=== PATIENT | female | born 1945 | race Caucasian/White ===

== ENCOUNTER 2025-03-31 15:23 | Inpatient (IN) | payer MEDICARE ==
[~2025-03-31] VITALS: Ht 165.1 cm; Wt 51.5 kg
[2025-03-31] MEDS ORDERED: ONDANSETRON 4 MG/2 ML VIAL ONE (15:30)
[2025-03-31] MEDS ORDERED: FUROSEMIDE 40 MG/4 ML VIAL ONE (15:30)
[2025-03-31] MEDS ORDERED: NITROGLYCERIN OINT 1 GM PACKET TP ONE (15:31)
[2025-03-31] MEDS: FUROSEMIDE 40 MG/4 ML VIAL IV ONE (15:41)
[2025-03-31] MEDS: ONDANSETRON 4 MG/2 ML VIAL IV ONE (15:41)
[2025-03-31] MEDS: NITROGLYCERIN OINT 1 GM PACKET TP ONE (15:41)
[2025-03-31 15:43] LABS: BASOPHILS # (AUTO) 0.1 K/UL (0.0-0.2); BASOPHILS % (AUTO) 0.6 % (0.0-2.0); EOSINOPHILS # (AUTO) 0.2 K/uL (0.0-0.7); HEMATOCRIT 35.3 % (31.2-41.9); HEMOGLOBIN 11.3 g/dL (10.9-14.3); LYMPHOCYTES # (AUTO) 1.1 K/uL (0.8-4.8); LYMPHOCYTES % (AUTO) 11.5 % (20.5-51.5); MEAN CORPUSCULAR HEMOGLOBIN 27.9 uug (24.7-32.8); MEAN CORPUSCULAR HGB CONC 32 g/dL (32.3-35.6); MEAN CORPUSCULAR VOLUME 87.1 fL (75.5-95.3); MONOCYTES # (AUTO) 1.3 K/uL (0.1-1.30); MONOCYTES % (AUTO) 13.1 % (0.0-11.0); NEUTROPHILS % (AUTO) 72.8 % (38.5-71.5); PLATELET COUNT (AUTO) 242 K/uL (179-408); RED BLOOD CELL COUNT(AUTO) 4.06 MIL/uL (3.63-4.92); RED CELL DISTRIBUTION WIDTH 14.7 % (12.3-17.7); WHITE BLOOD COUNT (AUTO) 9.6 K/uL (3.8-11.8)
[2025-03-31 15:50] LABS: CALCIUM 8.5 mg/dL (8.5-10.1); CARBON DIOXIDE 25 mmol/L (21-32); CHLORIDE 93 mmol/L (98-107); CREATININE 0.7 mg/dL (0.6-1.3); GLUCOSE 145 mg/dL (74-106); POTASSIUM 4.7 mmol/L (3.5-5.1); SODIUM SERUM 125 mmol/L (136-145); UREA NITROGEN, BLOOD 21 mg/dL (7-18)
[2025-03-31 15:59] LABS: DIFFERENTIAL COMMENT 1
[2025-03-31 16:03] LABS: ALANINE AMINOTRANSFERASE 18 U/L (14-59); ALBUMIN 3.2 g/dL (3.4-5.0); ALKALINE PHOSPHATASE 73 U/L (50-136); ASPARTATE AMINOTRANSFERASE 19 U/L (15-37); BILIRUBIN,DIRECT 0.1 mg/dL (0.0-0.2); BILIRUBIN,TOTAL 0.4 mg/dL (0.2-1.0); NT-PRO BNP 1281 pg/mL (0-125); TOTAL PROTEIN, SERUM 6.9 g/dL (6.4-8.2)
[2025-03-31 16:20] VITALS: O2SAT 96
[2025-03-31 16:38] LABS: ABG BASE EXCESS -1.4 mmol/L (-2.0-3.0); ABG HCO3 23.8 mmol/L (21.0-28.0); ABG PCO2 41.7 mmHg (32.0-45.0); ABG PH 7.374 (7.350-7.450); ABG PO2 88.2 mmHg (83.0-108.0); ABG SITE RIGHT RADIAL; ABG TOTAL HEMOGLOBIN 12.1 G/dL (12.0-16.0); AaDO2 96.5 mmHg; COHb 0.3 % (0.5-1.5); MetHb 0.1 % (0.0-1.5); O2Hb 95.9 % (94.0-98.0)
[2025-03-31] MEDS ORDERED: LABETALOL PO (17:27)
[2025-03-31] MEDS ORDERED: TRIA60LO13 TP (17:27)
[2025-03-31] MEDS ORDERED: METO-295 PO (17:27)
[2025-03-31] MEDS ORDERED: LOSA25TA27 PO (17:27)
[2025-03-31] MEDS ORDERED: HYDR28.35 TP (17:27)
[2025-03-31] MEDS ORDERED: CELE100C PO (17:27)
[2025-03-31] MEDS ORDERED: AMLO1ORA PO (17:27)
[2025-03-31] MEDS ORDERED: UREA198C TP (17:27)
[2025-03-31] MEDS ORDERED: FURO20TA4 PO (17:27)
[2025-03-31] MEDS ORDERED: ENOXAPARIN SODIUM 60 MG/0.6 ML DISP.SYRIN SQ ONE (20:13)
[2025-03-31] MEDS: ENOXAPARIN SODIUM 60 MG/0.6 ML DISP.SYRIN SQ ONE (20:19)
[2025-03-31 21:00] VITALS: O2SAT 96
[2025-03-31] MEDS ORDERED: MAGNESIUM HYDROXIDE 30 ML LIQUID UDC PO PRN (21:15)
[2025-03-31] MEDS ORDERED: ONDANSETRON 4 MG/2 ML VIAL IV PRN (21:15)
[2025-03-31] MEDS ORDERED: REMEDY ESSENTIAL ZINC PASTE 113 GM TP PRN (21:15)
[2025-03-31] MEDS: ACETAMINOPHEN 325 MG TABLET PO PRN (22:10)
[2025-03-31] MEDS ORDERED: BUMETANIDE 2.5 MG/10 ML VIAL ONE (22:13)
[2025-03-31] MEDS: BUMETANIDE INJ 4 MG in IV DEXTROSE 5% 24 ML IV ONE (22:27)
[2025-03-31] MEDS: LABETALOL HCL 100 MG TABLET PO ONE (22:54)
[2025-03-31 23:33] VITALS: BP 154/89; TEMP 98.8; O2SAT 91
[2025-04-01] VITALS (7 sets, daily range): BP systolic 97–138; BP diastolic 55–80; TEMP 97.6–99.3; O2SAT 88–100
[2025-04-01 04:26] LABS: BASOPHILS # (AUTO) 0.1 K/UL (0.0-0.2); BASOPHILS % (AUTO) 0.5 % (0.0-2.0); EOSINOPHILS % (AUTO) 0.3 % (0.0-7.0); HEMATOCRIT 32.4 % (31.2-41.9); HEMOGLOBIN 10.5 g/dL (10.9-14.3); LYMPHOCYTES # (AUTO) 0.7 K/uL (0.8-4.8); MEAN CORPUSCULAR HEMOGLOBIN 28.2 uug (24.7-32.8); MEAN CORPUSCULAR HGB CONC 32 g/dL (32.3-35.6); MEAN CORPUSCULAR VOLUME 87.4 fL (75.5-95.3); MONOCYTES # (AUTO) 1.5 K/uL (0.1-1.30); MONOCYTES % (AUTO) 8.5 % (0.0-11.0); NEUTROPHILS # (AUTO) 15.1 K/uL (1.8-8.9); NEUTROPHILS % (AUTO) 86.7 % (38.5-71.5); PLATELET COUNT (AUTO) 128 K/uL (179-408); RED BLOOD CELL COUNT(AUTO) 3.71 MIL/uL (3.63-4.92); RED CELL DISTRIBUTION WIDTH 14.4 % (12.3-17.7); WHITE BLOOD COUNT (AUTO) 17.5 K/uL (3.8-11.8)
[2025-04-01 04:34] LABS: DIFFERENTIAL COMMENT 1
[2025-04-01 04:39] LABS: ALANINE AMINOTRANSFERASE 16 U/L (14-59); ALKALINE PHOSPHATASE 66 U/L (50-136); ASPARTATE AMINOTRANSFERASE 15 U/L (15-37); BILIRUBIN,TOTAL 0.8 mg/dL (0.2-1.0); CALCIUM 8.6 mg/dL (8.5-10.1); CARBON DIOXIDE 27 mmol/L (21-32); CHLORIDE 93 mmol/L (98-107); CHOLESTEROL 247 mg/dL (<200); CREATININE 0.8 mg/dL (0.6-1.3); GLUCOSE 104 mg/dL (74-106); HDL CHOLESTEROL 58 mg/dL (40-60); MAGNESIUM 1.8 mg/dL (1.8-2.4); PHOSPHOROUS 4.7 mg/dL (2.5-4.9); POTASSIUM 3.8 mmol/L (3.5-5.1); SODIUM SERUM 129 mmol/L (136-145); TOTAL PROTEIN, SERUM 6.6 g/dL (6.4-8.2); TRIGLYCERIDES 67 MG/DL (30-150); UREA NITROGEN, BLOOD 22 mg/dL (7-18)
[2025-04-01 05:23] LABS: THYROID STIMULATING HORMONE 4.082 mIU/mL (0.358-3.740)
[2025-04-01] MEDS: PANTOPRAZOLE SODIUM 40 MG TABLET.DR PO SCH (06:08)
[2025-04-01] MEDS: FUROSEMIDE 20 MG TABLET PO SCH (08:54)
[2025-04-01] MEDS: AMLODIPINE 10 MG TABLET PO SCH (08:55)
[2025-04-01] MEDS: ENOXAPARIN SODIUM 60 MG/0.6 ML DISP.SYRIN SQ SCH (08:56)
[2025-04-01] MEDS ORDERED: HYDROCORTISONE 2.5% ONT. 28.35 GM TUBE TP SCH (09:00)
[2025-04-01] MEDS ORDERED: LABETALOL HCL 100 MG TABLET PO SCH ×2 (09:00)
[2025-04-01] MEDS ORDERED: LOSARTAN POTASSIUM 25 MG TABLET PO PRN (09:00)
[2025-04-01] MEDS ORDERED: LOSARTAN POTASSIUM 25 MG TABLET PO SCH (09:00)
[2025-04-01] MEDS: FUROSEMIDE 20 MG/2 ML VIAL IV SCH (12:05)
[2025-04-01] MEDS ORDERED: LOSA25TA27 PO (14:33)
[2025-04-01] MEDS ORDERED: LABE200T5 PO (14:33)
[2025-04-01] MEDS: HYDROCORTISONE 2.5% ONT. 28.35 GM TUBE TP SCH (14:59)
[2025-04-01] MEDS: LABETALOL HCL 200 MG TABLET PO SCH (21:00)
[2025-04-02] VITALS: BP 120/70; TEMP 98.6; O2SAT 94
[2025-04-02 00:10] VITALS: O2SAT 96
[2025-04-02 04:00] VITALS: BP 127/73; TEMP 98; O2SAT 96
[2025-04-02 07:05] LABS: BASOPHILS # (AUTO) 0.1 K/UL (0.0-0.2); BASOPHILS % (AUTO) 0.9 % (0.0-2.0); EOSINOPHILS # (AUTO) 0.2 K/uL (0.0-0.7); EOSINOPHILS % (AUTO) 1.7 % (0.0-7.0); HEMATOCRIT 31.9 % (31.2-41.9); HEMOGLOBIN 10.7 g/dL (10.9-14.3); LYMPHOCYTES # (AUTO) 0.6 K/uL (0.8-4.8); LYMPHOCYTES % (AUTO) 6.2 % (20.5-51.5); MEAN CORPUSCULAR HEMOGLOBIN 28.6 uug (24.7-32.8); MEAN CORPUSCULAR HGB CONC 33 g/dL (32.3-35.6); MEAN CORPUSCULAR VOLUME 85.6 fL (75.5-95.3); MONOCYTES # (AUTO) 1.2 K/uL (0.1-1.30); MONOCYTES % (AUTO) 12.4 % (0.0-11.0); NEUTROPHILS # (AUTO) 7.9 K/uL (1.8-8.9); NEUTROPHILS % (AUTO) 78.8 % (38.5-71.5); PLATELET COUNT (AUTO) 227 K/uL (179-408); RED BLOOD CELL COUNT(AUTO) 3.73 MIL/uL (3.63-4.92); RED CELL DISTRIBUTION WIDTH 14.5 % (12.3-17.7)
[2025-04-02 07:13] LABS: DIFFERENTIAL COMMENT 1
[2025-04-02 07:16] LABS: CALCIUM 9.1 mg/dL (8.5-10.1); CARBON DIOXIDE 29 mmol/L (21-32); CHLORIDE 95 mmol/L (98-107); GLUCOSE 78 mg/dL (74-106); PHOSPHOROUS 4.1 mg/dL (2.5-4.9); POTASSIUM 3.7 mmol/L (3.5-5.1); SODIUM SERUM 134 mmol/L (136-145); UREA NITROGEN, BLOOD 24 mg/dL (7-18)
[2025-04-02 07:57] VITALS: BP 134/75; TEMP 97.7; O2SAT 98
[2025-04-02] MEDS ORDERED: BUME1TAB8 PO (11:24)
[2025-04-02] MEDS ORDERED: SACU1TAB PO (11:24)
[2025-04-02 11:30] VITALS: BP 141/74; TEMP 97.7; O2SAT 100
[2025-04-02 11:44] VITALS: BP 141/74
[2025-04-02] MEDS: LABETALOL HCL 100 MG TABLET PO SCH (11:44)
== END 2025-04-02 13:00 | disposition home or self-care (01) | DRG 291 ==
LOC: ER 15:23 → TELE3 20:53
PROVIDERS: ADMIT Nurse Practitioner Acute Care; ATTEND Nurse Practitioner Acute Care
PROC: 5A09357 Assistance with Respiratory Ventilation, Less than 24 Consecutive Hours, Continuous Positive Airway Pressure (ICD-10-PCS; principal; 2025-03-31)
DX: I11.0 Hypertensive heart disease with heart failure (principal); I50.31 Acute diastolic (congestive) heart failure; J96.01 Acute respiratory failure with hypoxia; C49.A0 Gastrointestinal stromal tumor, unspecified site; E87.1 Hypo-osmolality and hyponatremia; M15.9 Polyosteoarthritis, unspecified; R79.1 Abnormal coagulation profile; Z53.20 Procedure and treatment not carried out because of patient's decision for unspecified reasons; K21.9 Gastro-esophageal reflux disease without esophagitis; Z88.8 Allergy status to other drugs, medicaments and biological substances
CPT/HCPCS: 36415; 36600; 71045; 83735; 84100; 84443; 84484; 85025; 85730; 93307; A4606; A4663; G0378; J1650; J1938; J2405; J3490